=== PATIENT | female | born 1995 | race Caucasian/White ===

== ENCOUNTER 2020-06-28 16:27 | Emergency (ER) | payer OTHER, SELFPAY ==
--- NOTE | ~2020-06-28 | US_ITS ---
EXAMINATION: US OB <=14 wk fetus w TV EXAM DATE: 06/28/2020 17:20 INDICATION: Vaginal bleed, , r/o ectopic. 1st trimester. TECHNIQUE: Pelvic obstetrical transabdominal and transvaginal sonogram was performed by a technmorris rodrigues. There are multiple grayscale and Doppler images available for interpretation. There are no brenton ier studies of this gestation for comparison. FINDINGS: Uterus measures 7.7 x 4.0 x 5.1 cm, and is morphologically normal. Endometrial stripe frances sures 13 mm, within normal limits. There is small free pelvic fluid. Right adnexa: The ovary measures 4.0 x 2.4 x 2.9 cm and is morphologically normal. Ovarian vascular f low confirmed. Left adnexa: The ovary measures 3.8 x 1.5 x 2.1 cm and is morphologically normal. Ovarian vascular fl ow confirmed. IMPRESSION: No intrauterine or extrauterine identified. Early intrauterine or rec ent spontaneous are common causes of elevated beta hCG in absence of intrauterine confirmation. Ultrasound can sometimes identify, but never exclude an ectopic in the setti ng of positive beta hCG. Follow up as warranted clinically with serial beta hCG levels or ultrasound . Reviewed, dictated and finalized at location A. SHED CLOTH EXAMINER IMPRESSION: No intrauterine or extrauterine identified. Early intraut erine or recent spontaneous are common causes of elevated be ta hCG in absence of intrauterine confirmation. Ultrasound can somet imes identify, but never exclude an ectopic in the setting of positiv e beta hCG. Follow up as warranted clinically with serial beta hCG levels or u ltrasound.
[2020-06-28 16:43] VITALS: BP 129/72; PULSE 77; RESP 18; TEMP 36.4; O2SAT 100
[2020-06-28 17:05] LABS: Basophils Percent Auto 0.2 % (0.2-1.2); Eosinophils Absolute Auto 0.2 K/mm3 (0-0.3); Eosinophils Percent Auto 1.7 % (0-4.4); Hematocrit 38.1 % (37.0-47.0); Hemoglobin 12.8 g/dL (12.0-15.0); Immature Granulocyte Absolute 0.02 K/mm3 (0.00-0.031); Immature Granulocyte Percent A 0.2 % (0-0.5); Lymphocytes Absolute Auto 3.61 K/mm3 (0.9-3.2); Lymphocytes Percent Auto 38.1 % (18.3-44.2); Mean Corpuscular HGB Conc 33.6 g/dl (32-36); Mean Corpuscular Hemoglobin 30.8 pg (26-34); Mean Corpuscular Volume 91.8 fl (80-100); Mean Platelet Volume 10.1 fl (7.4-10.4); Monocytes Absolute Auto 0.5 K/mm3 (0.1-0.6); Monocytes Percent Auto 5.2 % (2.6-8.5); Neutrophils Absolute Auto 5.2 K/mm3 (1.3-6.7); Neutrophils Percent Auto 54.6 % (45.5-73.1); Platelet Count Result 286 k/mm3 (150-375); Red Blood Count 4.15 M/mm3 (4.2-5.4); Red Cell Distribution Width 12.2 % (11.5-14.5); White Blood Count 9.5 K/mm3 (4.5-10.0)
--- NOTE | 2020-06-28 17:19 | ED.FEMALEGU ---
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 Patient tested positive for home test 1-1/2-week ago. Last menstrual cycle May 17, 2020. Patient is 0, para 0 and 0. Patient denies any fever, chills, nausea, vomiting. Related Data Home Medications Medication Instructions Recorded Confirmed albuterol mcg INHALATION 06/28/20 06/28/20 levothyroxine 88 mcg PO DAILY 06/28/20 06/28/20 Allergies Allergy/AdvReac Type Severity Reaction Status Date / Time Sulfa (Sulfonamide Allergy Other Verified 06/28/20 16:46 Antibiotics) Review of Systems Review of Systems: Narrative: CONSTITUTIONAL: Denies fever, chills, or sweats. EYES: Denies visual changes, redness, or discharge. ENT: Denies rhinorrhea, congestion, sore throat, or otalgia. CARDIOVASCULAR: Denies chest pain, palpitations, or edema. RESPIRATORY: Denies cough or dyspnea. GASTROINTESTINAL: Denies abdominal pain, nausea, vomiting, or diarrhea. GENITOURINARY: Denies dysuria or hematuria. SKIN: Denies rash or itching. MUSCULOSKELETAL: Denies back pain, joint pain, or myalgia. NEUROLOGIC: Denies headache, numbness, or weakness. PSYCHIATRIC: Denies anxiety or depression. PMFSH Social History Social History Gender identity (if verbalized by the patient): Female Exam Narrative: Exam Narrative: General appearance: Well-developed, well-nourished Skin: Normal color Head: Normocephalic, nontraumatic Eyes: Clear conjunctiva ENT: Oropharynx normal, ears normal, nose normal Neck: Supple, nontender Chest and respiratory: Airway patent, no respiratory distress, no accessory muscle use Heart: Regular rate/rhythm Abdomen: Soft, nontender, no organomegaly, quiet bowel sounds Vascular: Normal peripheral pulses, normal capillary refill. Musculoskeletal: Normal range of motion, nontender back Neurologic: Alert and oriented ?3, LANDSCAPE DRAFTER is normal as tested, no gross motor deficit Course Course Emergency Course: Stable Reevaluation(s) Reevaluation #1: Patient declined a pelvic exam because of negative test Date: 06/28/20 Time: 19:01 Vital Signs Vital signs: Vital Signs Temperature 36.4 C 06/28/20 16:43 Pulse Rate 77 06/28/20 16:43 Respiratory Rate 18 06/28/20 16:43 Blood Pressure 129/72 06/28/20 16:43 Pulse Oximetry 100 06/28/20 16:43 Temperature 36.3 C L 06/28/20 18:28 Pulse Rate 76 06/28/20 18:33 Respiratory Rate 18 06/28/20 18:28 Blood Pressure 109/65 06/28/20 18:33 Pulse Oximetry 100 06/28/20 18:28 MDM - Female Genitourinary MDM Narrative Medical decision making narrative: with vaginal bleeding. Ectopic is a concern, threatened . Labs, pelvic ultrasound, pelvic exam ordered. Further plan to follow Differential Diagnosis Differential diagnosis: Likely other (Ectopic , threatened , ) Lab Data Result diagrams: 06/28/20 16:56 Labs: Lab Results 06/28/20 06/28/20 06/28/20 Range/Units 16:56 16:56 16:56 WBC 9.5 (4.5-10.0) K/mm3 RBC 4.15 L (4.2-5.4) M/mm3 Hgb 12.8 (12.0-15.0) g/dL Hct 38.1 (37.0-47.0) % MCV 91.8 (80-100) fl MCH 30.8 (26-34) pg MCHC 33.6 (32-36) g/dl RDW 12.2 (11.5-14.5) % Plt Count 286 (150-375) k/mm3 M
[2020-06-28 17:35] LABS: Beta HCG Quantitative < 2.39 mIU/ML
[2020-06-28 18:28] VITALS: BP 109/65; PULSE 60; RESP 18; TEMP 36.3; O2SAT 100
[2020-06-28 18:33] VITALS: BP 103/66; BP 109/65; BP 94/56; PULSE 60; PULSE 63; PULSE 76
[2020-06-28 19:07] VITALS: BP 113/59; PULSE 66; RESP 16; TEMP 36.6; O2SAT 99
== END 2020-06-28 19:10 | disposition home or self-care (01) ==
PROVIDERS: Emergency Provider Emergency Medicine
DX: N93.9 Abnormal uterine and vaginal bleeding, unspecified (principal)
CPT/HCPCS: 36415; 76801; 76817; 84702; 85025; 85461; 99284

== ENCOUNTER 2021-06-17 08:29 | Emergency (ER) | payer OTHER, SELFPAY ==
--- NOTE | ~2021-06-17 | US_ITS ---
EXAMINATION: US OB <=14 wk fetus w TV DATE: 06/17/2021 09:41 INDICATION: Spotting during first trimester of . TECHNIQUE: Real-time pelvic ultrasound utilizing both a transvaginal and transabdominal probe was pe rformed. The interpreting radiologist was not present for the study. COMPARISON: None. FINDINGS: The uterus measures 9.7 x 4.9 x 6.6 cm. There is an intrauterine gestational sac. A yolk sac and fet al pole are identified. The crown rump length measures 4 mm, which correlates with an estimated gesta tional age of 6 weeks and 1 days. heart motion is identified measuring 113 beats per minute (bp m) by M-mode Doppler. 7 x 6 x 3 mm anechoic subchorionic hematoma at the margin of the gestational sa c. The right ovary measures 3.9 x 2.9 x 3.9 and contains a thick-walled corpus luteum cyst with 1.2 x 0. 9 x 0.9 cm central anechoic region. The left ovary measures 2.7 x 2.0 x 1.6 cm. There is no free flui d in the pelvis. IMPRESSION: 1. Single living fetus with heart rate of 113 bpm. 2. Gestational age by ultrasound of 6 weeks 1 day(s) +/- 4 day(s) with ultrasound estimated date of d elivery ([facility]) of 02/09/2022. 3. 7 x 6 x 3 mm subchorionic hematoma. Reviewed, dictated and finalized at location A. D STRATEGY MANAGER IMPRESSION: 1. Single living fetus with heart rate of 113 bpm. 2. Gestational age by ultrasound of 6 weeks 1 day(s) +/- 4 day(s) with ultrasou nd estimated date of delivery ([facility]) of 02/09/2022. 3. 7 x 6 x 3 mm subchorionic hematoma.
[2021-06-17 08:35] VITALS: BP 138/83; PULSE 64; RESP 18; TEMP 37; O2SAT 98
--- NOTE | 2021-06-17 08:54 | ED.PREGNANCY ---
HPI - General Chief complaint: Vaginal Bleeding Stated complaint: vag bleed Time Seen by Provider: 06/17/21 08:53 Source: patient Mode of arrival: ambulatory Limitations: no limitations History of Present Illness HPI Narrative: Patient is 25 years old white female, two 0 1 presents with vaginal spotting and slight lower abdominal cramps started yesterday. Patient is telling me that she is 5 weeks , last menstrual. At the end of April 2021. History of hypothyroidism, patient does not smoke or drink or uses drugs. Related Data Home Medications Medication Instructions Recorded Confirmed No Home Medications 06/17/21 06/17/21 Allergies Allergy/AdvReac Type Severity Reaction Status Date / Time Sulfa (Sulfonamide Allergy Severe Other Verified 06/17/21 08:39 Antibiotics) Review of Systems Review of Systems: CONSTITUTIONAL: Denies fever, chills, or sweats. EYES: Denies visual changes, redness, or discharge. ENT: Denies rhinorrhea, congestion, sore throat, or otalgia. CARDIOVASCULAR: Denies chest pain, palpitations, or edema. RESPIRATORY: Denies cough or dyspnea. GASTROINTESTINAL: Denies abdominal pain, nausea, vomiting, or diarrhea. GENITOURINARY: Denies dysuria or hematuria. SKIN: Denies rash or itching. MUSCULOSKELETAL: Denies back pain, joint pain, or myalgia. NEUROLOGIC: Denies headache, numbness, or weakness. PSYCHIATRIC: Denies anxiety or depression. Exam Narrative: General appearance: Well-developed, well-nourished Skin: Normal color Head: Normocephalic, nontraumatic Eyes: Clear conjunctiva ENT: Oropharynx normal, ears normal, nose normal Neck: Supple, nontender Chest and respiratory: Airway patent, no respiratory distress, no accessory muscle use Heart: Regular rate/rhythm Abdomen: Soft, nontender, no organomegaly, quiet bowel sounds Vascular: Normal peripheral pulses, normal capillary refill. Musculoskeletal: Normal range of motion, nontender back Neurologic: Alert and oriented ?3, SENIOR DESIGN ENGINEERING SPECIALIST is normal as tested, no gross motor deficit : Speculum Exam - Vagina: normal appearance of the vagina Speculum Exam - Cervix: normal appearance of the cervix, Cervical os closed and Other cervical findings present (No vaginal bleeding or discharge) Bimanual exam- vagina & uterus: normal bimanual exam Bimanual Exam- Adnexa, other: normal adnexae Course Course Emergency Course: Stable Vital Signs Vital signs: Vital Signs Temperature 37.0 C 06/17/21 08:35 Pulse Rate 64 06/17/21 08:35 Respiratory Rate 18 06/17/21 08:35 Blood Pressure 138/83 06/17/21 08:35 Pulse Oximetry 98 06/17/21 08:35 Temperature 37.0 C 06/17/21 08:35 Pulse Rate 64 06/17/21 08:35 Respiratory Rate 18 06/17/21 08:35 Blood Pressure 138/83 06/17/21 08:35 Pulse Oximetry 98 06/17/21 08:35 MDM - OB/Uterine Contractions MDM Narrative Medical decision making narrative: Vaginal bleeding, early Differential Diagnosis Differential diagnosis: Likely other (Miscarriage, ectopic ,. Falls ) Lab Data Result diagrams: 06/17/21 09:02 Labs: Lab Results 06/17/21 06/17/21 06/17/21 Range/Units 09:02 09:02 09:02 WBC 7.4 (4.5-10.0) K/mm3 RBC 4.51 (4.2-5.4) M/mm3 Hgb 14.1 (12.0-15.0) g/dL Hct 41.5 (37.0-47.0) % MCV 92.0 (80-100) fl MCH 31.3 (26-34) pg MCHC 34.0 (32-36) g/dl RDW 12.6 (11.5-14.5) % Plt Count 302 (150-375) k/mm3 MPV 10.1 (7.4-10.4) fl Immature Gran % (Auto) 0.4 (0-0.5) % Neut % (Auto) 71.9 (45.5-73.1) % Lymph % (Auto) 19.3 (18.3-44.2) % [place] % (Auto) 7.1 (2.6-8.5) % Eos % (
[2021-06-17 09:12] LABS: Basophils Percent Auto 0.5 % (0.2-1.2); Eosinophils Absolute Auto 0.1 K/mm3 (0-0.3); Eosinophils Percent Auto 0.8 % (0-4.4); Hematocrit 41.5 % (37.0-47.0); Hemoglobin 14.1 g/dL (12.0-15.0); Immature Granulocyte Absolute 0.03 K/mm3 (0.00-0.031); Immature Granulocyte Percent A 0.4 % (0-0.5); Lymphocytes Absolute Auto 1.42 K/mm3 (0.9-3.2); Lymphocytes Percent Auto 19.3 % (18.3-44.2); Mean Corpuscular Hemoglobin 31.3 pg (26-34); Mean Platelet Volume 10.1 fl (7.4-10.4); Monocytes Absolute Auto 0.5 K/mm3 (0.1-0.6); Monocytes Percent Auto 7.1 % (2.6-8.5); Neutrophils Absolute Auto 5.3 K/mm3 (1.3-6.7); Neutrophils Percent Auto 71.9 % (45.5-73.1); Platelet Count Result 302 k/mm3 (150-375); Red Blood Count 4.51 M/mm3 (4.2-5.4); Red Cell Distribution Width 12.6 % (11.5-14.5); White Blood Count 7.4 K/mm3 (4.5-10.0)
== END 2021-06-17 10:43 | disposition home or self-care (01) ==
PROVIDERS: Emergency Provider Emergency Medicine
DX: O20.0 Threatened abortion (principal); Z3A.01 Less than 8 weeks gestation of pregnancy
CPT/HCPCS: 36415; 76801; 76817; 81025; 84702; 85025; 85461; 99284

== ENCOUNTER 2021-06-25 20:44 | Emergency (ER) | payer OTHER, SELFPAY ==
[2021-06-25 20:49] VITALS: BP 134/75; PULSE 73; RESP 19; TEMP 36.6; O2SAT 100
--- NOTE | 2021-06-25 22:15 | ED.ABDPAIN ---
HPI - Abdominal Pain General Chief Complaint: Abdominal Pain Stated Complaint: abdominal pain, 7 weeks Time Seen by Provider: 06/25/21 21:55 Source: patient Mode of arrival: ambulatory Limitations: no limitations History of Present Illness HPI narrative: This is a 25 year old , about 7 weeks , that presents to the ER for left sided abdominal pain. Reports intermittent over the last couple of days. Reports brief left sided lower abdominal pain. No associated symptoms. She has had an US this , she does not have an OB yet. Denies fever, vomiting, diarrhea, dysuria or hematuria. Related Data Home Medications Medication Instructions Recorded Confirmed No Home Medications 06/17/21 06/17/21 Allergies Allergy/AdvReac Type Severity Reaction Status Date / Time Sulfa (Sulfonamide Allergy Severe Other Verified 06/25/21 20:52 Antibiotics) Review of Systems Review of Systems: CONSTITUTIONAL: Denies fever GASTROINTESTINAL: Reports abdominal pain. Denies nausea, vomiting, or diarrhea. GENITOURINARY: Denies dysuria or hematuria. All systems reviewed & are unremarkable except as noted in HPI and below PMFSH Past Medical History Medical History (Updated 06/25/21 @ 23:26 by Melodie Knight PA-C) History of hypothyroidism Social History Social History (Updated 06/25/21 @ 22:18 by Melodie Knight PA-C) Smoking status: Former smoker Exam Narrative: GENERAL: Well-appearing, well-nourished, and in no acute distress. HEAD: Normocephalic, atraumatic. EYES: EOMI. CHEST: Clear to auscultation. No respiratory distress. No wheezes rales or rhonchi HEART: Regular rate and rhythm. No murmur heard. Normal peripheral pulses. ABDOMEN: Soft, nontender, nondistended, normal active bowel sounds. EXTREMITIES: Normal range of motion. No edema. SKIN: Warm, dry, no rash. NEURO: No focal deficits. Alert and oriented x3. PSYCH: Normal mood and affect Procedures Other Procedure Procedure 1: Other Procedure: Bedside ultrasound shows an intrauterine with cardiac motion noted at 120 bpm Course Vital Signs Vital signs: Vital Signs Temperature 97.9 F 06/25/21 20:49 Pulse Rate 73 06/25/21 20:49 Respiratory Rate 19 06/25/21 20:49 Blood Pressure 134/75 06/25/21 20:49 Pulse Oximetry 100 06/25/21 20:49 Temperature 97.9 F 06/25/21 20:49 Pulse Rate 76 06/25/21 22:51 Respiratory Rate 16 06/25/21 22:51 Blood Pressure 122/80 06/25/21 22:51 Pulse Oximetry 100 06/25/21 22:51 MDM - Abdominal Pain MDM Narrative Medical decision making narrative: Patient presents to the emergency department for intermittent left lower quadrant pain ongoing over the last couple of days, about 7 weeks . She is afebrile and nontoxic-appearing. Her vitals are stable. CBC with mild leukocytosis, likely due to early . Metabolic panel and lipase without concerning findings. UA without evidence of infection. Bedside ultrasound showed a intrauterine gestation with positive cardiac motion. Patient was updated on case findings. Abdominal exam is benign. She was instructed to follow-up with OB. She was given warnings to return to the ER Lab Data Attestation: I reviewed the patient's lab results. Result diagrams: 06/25/21 22:49 06/25/21 22:49 Labs: Lab Results 06/25/21 06/25/21 06/25/21 Range/Units 22:34 22:49 22:49 WBC 12.8 H (4.5-10.0) K/mm3 RBC 4.02 L (4.2-5.4) M/mm3 Hgb 12.7 (12.0-15.0) g/dL Hct 37.2 (37.0-47.0) % MCV 92.5 (80-100) fl MCH 31.6 (26-34) pg MCHC 34.1 (32-36) g/dl RDW 12.4 (11.5-14.5) % Plt Count 284 (150-375) k/mm3 MPV 9.8 (7.4-10.4) fl Immature Gran % (Auto) 0.4 (0-0.5) % Neut % (Auto) 66.5 (45.5-73.1) % Lymph % (Auto) 25.2 (18.3-44.2) % Green % (Auto) 5.9 (2.6-8.5) % Eos % (Auto) 1.6 (0-4.4) % Baso % (Auto) 0.4 (0.2-1.2) % Lymph
[2021-06-25 22:45] LABS: Add Urine Microscopic? NO; Appearance Urine Clear (Clear); Bilirubin Urine Negative (Negative); Blood Urine Negative (Negative); Color Urine Yellow (Yellow); Glucose Urine UA Negative (Negative); Ketones Urine Negative (Negative); Leukocyte Esterase Ur Negative LEU/UL (Negative); Nitrate Urine Negative (Negative); Protein Urine Negative (Negative); Urobilinogen Urine Negative mg/dL (<2.0)
[2021-06-25 22:51] VITALS: BP 122/80; PULSE 76; RESP 16; O2SAT 100
[2021-06-25 23:00] LABS: Basophils Absolute Auto 0.1 K/mm3 (0.0-0.1); Basophils Percent Auto 0.4 % (0.2-1.2); Eosinophils Absolute Auto 0.2 K/mm3 (0-0.3); Eosinophils Percent Auto 1.6 % (0-4.4); Hematocrit 37.2 % (37.0-47.0); Hemoglobin 12.7 g/dL (12.0-15.0); Immature Granulocyte Absolute 0.05 K/mm3 (0.00-0.031); Immature Granulocyte Percent A 0.4 % (0-0.5); Lymphocytes Absolute Auto 3.23 K/mm3 (0.9-3.2); Lymphocytes Percent Auto 25.2 % (18.3-44.2); Mean Corpuscular HGB Conc 34.1 g/dl (32-36); Mean Corpuscular Hemoglobin 31.6 pg (26-34); Mean Corpuscular Volume 92.5 fl (80-100); Mean Platelet Volume 9.8 fl (7.4-10.4); Monocytes Absolute Auto 0.8 K/mm3 (0.1-0.6); Monocytes Percent Auto 5.9 % (2.6-8.5); Neutrophils Absolute Auto 8.5 K/mm3 (1.3-6.7); Neutrophils Percent Auto 66.5 % (45.5-73.1); Platelet Count Result 284 k/mm3 (150-375); Red Blood Count 4.02 M/mm3 (4.2-5.4); Red Cell Distribution Width 12.4 % (11.5-14.5); White Blood Count 12.8 K/mm3 (4.5-10.0)
[2021-06-25 23:07] LABS: Bacteria Urine Trace /hpf; Mucus Urine Rare /lpf; Squamous Epithelial Cell Urine Many /hpf (Few); WBC Urine 0-3 /hpf
[2021-06-25 23:09] LABS: Alanine Aminotransferase 20 U/L (4-35); Albumin Level 4.3 g/dL (3.5-5.1); Alkaline Phosphatase 60 U/L (38-126); Anion Gap 7 mmol/L (8-16); Aspartate Amino Transferase 25 U/L (14-36); Bilirubin,Total 0.5 mg/dL (0.2-1.3); Blood Urea Nitrogen 9 mg/dL (7-17); Calcium 9.2 mg/dL (8.4-10.2); Carbon Dioxide 22 mmol/L (22-30); Chloride 106 mmol/L (98-107); Estimated CRCL calculation 136 ml/min; Estimated Glomerular Filt Rate > 60; Glucose 99 mg/dL (65-110); Lipase 101 U/L (23-300); Sodium 135 mmol/L (137-145)
[2021-06-26 00:08] VITALS: BP 114/96; PULSE 66; RESP 14; O2SAT 100
== END 2021-06-26 00:09 | disposition home or self-care (01) ==
PROVIDERS: Physician Assistant; Emergency Provider Emergency Medicine
DX: O26.891 Other specified pregnancy related conditions, first trimester (principal); R10.9 Unspecified abdominal pain; Z3A.01 Less than 8 weeks gestation of pregnancy
CPT/HCPCS: 36415; 80053; 81003; 83690; 85025; 99283

== ENCOUNTER 2021-07-05 09:15 | Emergency (ER) | payer OTHER, SELFPAY ==
[2021-07-05 09:19] VITALS: BP 127/70; PULSE 73; RESP 18; TEMP 36.3; O2SAT 100
--- NOTE | 2021-07-05 09:28 | ED.ABDPAIN ---
HPI - Abdominal Pain General Chief Complaint: Abdominal Pain Stated Complaint: preg complications Time Seen by Provider: 07/05/21 09:18 History of Present Illness HPI narrative: 25-year-old female presents to the emergency room with ongoing lower left quadrant pain for greater than 2 weeks. Patient states she is 9 weeks , with no current OB care. Patient has been evaluated here in the emergency room twice for the same complaint. Patient denies vaginal bleeding. Patient states that abdominal pain is sharp and intermittent. Patient denies nausea vomiting diarrhea. Patient states she is constipated. Related Data Home Medications Medication Instructions Recorded Confirmed No Home Medications 06/17/21 06/17/21 Allergies Allergy/AdvReac Type Severity Reaction Status Date / Time Sulfa (Sulfonamide Allergy Severe Other Verified 06/25/21 20:52 Antibiotics) Review of Systems Review of Systems: CONSTITUTIONAL: Denies fever, chills, or sweats. EYES: Denies visual changes, redness, or discharge. ENT: Denies rhinorrhea, congestion, sore throat, or otalgia. CARDIOVASCULAR: Denies chest pain, palpitations, or edema. RESPIRATORY: Denies cough or dyspnea. GASTROINTESTINAL: Per HPI, left lower quadrant pain. Denies nausea, vomiting, or diarrhea. GENITOURINARY: Denies dysuria or hematuria. SKIN: Denies rash or itching. MUSCULOSKELETAL: Denies back pain, joint pain, or myalgia. NEUROLOGIC: Denies headache, numbness, dizziness, or weakness. PSYCHIATRIC: Denies anxiety or depression. [facility] Past Medical History Medical History History of hypothyroidism Social History Social History Smoking status: Former smoker Exam Narrative: GENERAL: Well-appearing, well-nourished, and in no acute distress. HEAD: Normocephalic, atraumatic. EYES: PERRLA and EOMI. ENT: Nares clear, no rhinorrhea or epistaxis. Mucous membranes moist. NECK: Supple. No adenopathy or masses. No carotid bruits or JVD CHEST: Clear to auscultation. No respiratory distress. No wheezes rales or rhonchi HEART: Regular rate and rhythm. No murmur heard. Normal peripheral pulses. ABDOMEN: Soft, nontender, nondistended, normal active bowel sounds. EXTREMITIES: Normal range of motion. No edema. SKIN: Warm, dry, no rash. NEURO: No focal deficits. Alert and oriented x3. PSYCH: Normal mood and affect. Course Vital Signs Vital signs: Vital Signs Temperature 36.3 C L 07/05/21 09:19 Pulse Rate 73 07/05/21 09:19 Respiratory Rate 18 07/05/21 09:19 Blood Pressure 127/70 07/05/21 09:19 Pulse Oximetry 100 07/05/21 09:19 Temperature 36.3 C L 07/05/21 09:19 Pulse Rate 73 07/05/21 09:19 Respiratory Rate 18 07/05/21 09:19 Blood Pressure 127/70 07/05/21 09:19 Pulse Oximetry 100 07/05/21 09:19 MDM - Abdominal Pain MDM Narrative Medical decision making narrative: 25-year-old female presents to the emergency room with ongoing left lower quadrant pain for 3 weeks. This is the patient's third ER visit for this complaint. Patient is currently 9 weeks . Ultrasound 2 weeks ago demonstrated intrauterine with heart rate of 120. CBC and CMP were demonstrated no abnormal results, beta-hCG quant was 59,000. Discussed case with Dr. Huitron, and he recommends patient follow-up with [facility]. Will recommend patient take a stool softener to aid with the constipation. Reassured patient that these pains could be related. Lab Data Result diagrams: 07/05/21 09:43 07/05/21 09:43 Labs: Lab Results 07/05/21 07/05/21 07/05/21 Range/Units 09:43 09:43 09:55 WBC 10.7 H (4.5-10.0) K/mm3 RBC 4.03 L (4.2-5.4) M/mm3 Hgb 12.7 (12.0-15.0) g/dL Hct 37.6 (37.0-47.0) % MCV 93.3 (80-100) fl MCH 31.5 (26-34) pg MCHC 33.8 (32-36) g/dl RDW 12.4 (1
[2021-07-05 09:48] LABS: Basophils Absolute Auto 0.1 K/mm3 (0.0-0.1); Basophils Percent Auto 0.5 % (0.2-1.2); Eosinophils Absolute Auto 0.1 K/mm3 (0-0.3); Eosinophils Percent Auto 1.1 % (0-4.4); Hematocrit 37.6 % (37.0-47.0); Hemoglobin 12.7 g/dL (12.0-15.0); Immature Granulocyte Absolute 0.06 K/mm3 (0.00-0.031); Immature Granulocyte Percent A 0.6 % (0-0.5); Lymphocytes Absolute Auto 2.33 K/mm3 (0.9-3.2); Lymphocytes Percent Auto 21.7 % (18.3-44.2); Mean Corpuscular HGB Conc 33.8 g/dl (32-36); Mean Corpuscular Hemoglobin 31.5 pg (26-34); Mean Corpuscular Volume 93.3 fl (80-100); Mean Platelet Volume 9.4 fl (7.4-10.4); Monocytes Absolute Auto 0.6 K/mm3 (0.1-0.6); Monocytes Percent Auto 5.1 % (2.6-8.5); Neutrophils Absolute Auto 7.6 K/mm3 (1.3-6.7); Platelet Count Result 274 k/mm3 (150-375); Red Blood Count 4.03 M/mm3 (4.2-5.4); Red Cell Distribution Width 12.4 % (11.5-14.5); White Blood Count 10.7 K/mm3 (4.5-10.0)
[2021-07-05 09:59] LABS: Alanine Aminotransferase 18 U/L (4-35); Albumin Level 4.3 g/dL (3.5-5.1); Alkaline Phosphatase 54 U/L (38-126); Anion Gap 8 mmol/L (8-16); Aspartate Amino Transferase 22 U/L (14-36); Bilirubin,Total 0.3 mg/dL (0.2-1.3); Blood Urea Nitrogen 7 mg/dL (7-17); Calcium 8.6 mg/dL (8.4-10.2); Carbon Dioxide 21 mmol/L (22-30); Chloride 108 mmol/L (98-107); Estimated CRCL calculation 160 ml/min; Estimated Glomerular Filt Rate > 60; Glucose 90 mg/dL (65-110); Potassium 3.8 mmol/L (3.4-5.0); Sodium 137 mmol/L (137-145)
[2021-07-05 10:05] LABS: Add Urine Microscopic? NO; Appearance Urine Clear (Clear); Bilirubin Urine Negative (Negative); Blood Urine Negative (Negative); Color Urine Yellow (Yellow); Glucose Urine UA Negative (Negative); Ketones Urine Negative (Negative); Leukocyte Esterase Ur Negative LEU/UL (Negative); Nitrate Urine Negative (Negative); Protein Urine Negative (Negative); Specific Grav Ur 1.019 (1.001-1.035); Urobilinogen Urine Negative mg/dL (<2.0)
[2021-07-05 12:04] VITALS: BP 137/91; PULSE 100; RESP 18; O2SAT 99
== END 2021-07-05 12:07 | disposition home or self-care (01) ==
PROVIDERS: Emergency Provider Nurse Practitioner Family
DX: O26.891 Other specified pregnancy related conditions, first trimester (principal); R10.32 Left lower quadrant pain; O99.611 Diseases of the digestive system complicating pregnancy, first trimester; K59.00 Constipation, unspecified; Z87.891 Personal history of nicotine dependence; Z3A.09 9 weeks gestation of pregnancy
CPT/HCPCS: 36415; 80053; 81003; 84702; 85025; 99283